=== PATIENT | male | born 1980 ===

== ENCOUNTER 2019-01-18 11:17 | Emergency (ER) | payer SELFPAY ==
[2019-01-18 11:41] VITALS: BP 113/70
--- NOTE | 2019-01-18 11:41 | Event Note ---
ED Screening Note Date of service: 01/18/19 Time: 11:36 ED Screening Note: This is a 38 y.o. M. that presents to the ER with left knee pain s/p fall yesterday. Patient states he was working yesterday and stepped on plywood and fell from 2 feet. When he fell Sheetrock fell on his left leg. + swelling, pain, and redness of left knee Eduardo loc This initial assessment/diagnostic orders/clinical plan/treatment(s) is/are subject to change based on patients health status, clinical progression and re- assessment by fellow clinical providers in the ED. Further treatment and workup at subsequent clinical providers discretion. Patient/guardian urged not to elope from the ED as their condition may be serious if not clinically assessed and managed. Initial orders include: XR left knee
--- NOTE | 2019-01-18 12:11 | Emergency Department Report ---
ED Back Pain/Injury HPI - General Chief Complaint: Extremity Injury, Lower Stated Complaint: LFT KNEE INJURY/PAIN Time Seen by Provider: 01/18/19 11:36 Source: patient Limitations: No Limitations - History of Present Illness Initial Comments: 38 yo comes to ER today p a piece of sheet rock hit him in the leg yesterday at work. No abrasion/lac. ambulatory. Pain /10. 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 Pain achy and is constant. Complaint: other -: Sudden Similar Symptoms Previously: No Place: work Radiation: none Severity: mild Improves With: none Worsens With: none Associated Symptoms: denies other symptoms - Related Data Previous Rx's Medication Instructions Recorded Last Taken Type Ibuprofen [Motrin] 800 mg PO Q8HR PRN #30 tablet 01/18/19 Unknown Rx Allergies Allergy/AdvReac Type Severity Reaction Status Date / Time No Known Allergies Allergy Unverified 01/18/19 11:20 ED Review of Systems ROS: Stated complaint: LFT KNEE INJURY/PAIN Other details as noted in HPI Comment: All other systems reviewed and negative ED Past Medical Hx - Past Medical History Medical history: no medical history Surgical history: no surgical history Psychiatric history: no pertinent history - Social History Alcohol use: rarely Drug use: none ED Back Pain Physical Exam - Exam General: Vital signs noted. No distress. Alert and acting appropriately. no bruising noted no swelling pt ambulatory Back/Abdomen: Yes Straight Leg Raise Pain, No Abdominal Tenderness, No Perithoracic Tenderness, No Perilumbar Tenderness, No Sacroiliac Tenderness, No Flank Tenderness Neuro: Yes Normal Sensation, Yes Normal DTR's, Yes Normal Gait, No Motor Weakness ED Course Vital Signs 01/18/19 11:36 Temperature 98.8 F Pulse Rate 73 Respiratory 16 Rate Blood Pressure 113/70 [Left] O2 Sat by Pulse 98 Oximetry Ed Back Pain Tests - Tests Tests: Normal X Rays ED Medical Decision Making - Radiology Data Radiology results: report reviewed, image reviewed - Medical Decision Making xray neg as ordered by IRON in triage full ROM dc home with dc plan of care and follow up PRN Vital Signs 01/18/19 11:36 Temperature 98.8 F Pulse Rate 73 Respiratory 16 Rate Blood Pressure 113/70 [Left] O2 Sat by Pulse 98 Oximetry - Differential Diagnosis contusion Critical care attestation.: If time is entered above; I have spent that time in minutes in the direct care of this critically ill patient, excluding procedure time. ED Disposition Clinical Impression: Knee contusion Disposition: TO HOME OR SELFCARE Is pt being admited?: No Does the pt Need Aspirin: No Condition: Stable Instructions: Contusion in Adults (ED) Additional Instructions: ICE REST ELEVATE FOLLOW UP WITH DR CULLEN IF PAIN PERSISTS MOTRIN FOR PAIN Prescriptions: Ibuprofen [Motrin] 800 mg PO Q8HR PRN #30 tablet PRN Reason: Pain, Moderate (4-6) Referrals: EDER CULLEN MD [Staff Physician] - 3-5 Days Time of Disposition: 12:56
[2019-01-18] MEDS ORDERED: IBUPROFEN 800 MG TAB PO ONE (12:18)
--- NOTE | 2019-01-18 12:53 | XRay Report ---
Left knee 3 views INDICATION: knee pain s/p fall, r/o fx. COMPARISON: None similar at this institution. FINDINGS: AP, oblique and straight lateral left knee radiographs demonstrate intact bony articulation . IMPRESSION: No acute osseous or soft tissue abnormality. No significant DJD. Signer Name: Kathie Ware Signed: 01/18/2019 12:48 PM Workstation Name: [id number]
== END 2019-01-18 13:58 | disposition home or self-care (01) ==
LOC: ED 11:17
DX: S80.02XA Contusion of left knee, initial encounter (principal); X58.XXXA Exposure to other specified factors, initial encounter; Y93.89 Activity, other specified; Y92.89 Other specified places as the place of occurrence of the external cause; Y99.8 Other external cause status